=== PATIENT | female | born 1980 | race African-American/Black ===

== ENCOUNTER 2021-02-25 14:33 | Emergency (ER) | payer SELFPAY ==
[~2021-02-25] VITALS: Ht 162.6 cm; Wt 56.7 kg
[2021-02-25 14:45] VITALS: BP 104/63
--- NOTE | 2021-02-25 15:12 | NUR ---
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
--- NOTE | 2021-02-25 15:58 | NUR ---
Patient discharged to home in stable condition. Written and verbal after care instructions given. Patient verbalizes understanding of instruction.
== END 2021-02-25 15:59 | disposition home or self-care (01) ==
LOC: ER 14:33
DX: S82.51XA Displaced fracture of medial malleolus of right tibia, initial encounter for closed fracture (principal); X58.XXXA Exposure to other specified factors, initial encounter; Y93.89 Activity, other specified; Y92.89 Other specified places as the place of occurrence of the external cause; Y99.8 Other external cause status
CPT/HCPCS: 73610-TC; 73630-TC